=== PATIENT | female | born 1975 | race Caucasian/White ===

== ENCOUNTER 2016-12-22 06:31 | Day surgery (SDC) | payer SELFPAY ==
[~2016-12-22] VITALS: Ht 172.7 cm; Wt 110.0 kg
[~2016-12-22 06:31] MED LIST: IRON PO; NORVASC5 M2 PO; ULTRAM50 M1 PO; [UNRECOGNIZED DRUG - OTHER] PO
== END 2016-12-22 17:45 ==
LOC: SHSB 06:31 → SRG 06:31 → SHSB 06:33 → SRG 07:00 → ORE 10:58 → PACU 14:03 → SHSC 15:25 → SRG 17:45
PROC: 0MUN4KZ Supplement Right Knee Bursa and Ligament with Nonautologous Tissue Substitute, Percutaneous Endoscopic Approach (ICD-10-PCS; principal; 2016-12-22)
PROC: 0SBC4ZZ Excision of Right Knee Joint, Percutaneous Endoscopic Approach (ICD-10-PCS; principal; 2016-12-22)
DX: M23.351 Other meniscus derangements, posterior horn of lateral meniscus, right knee (principal); M23.341 Other meniscus derangements, anterior horn of lateral meniscus, right knee; M23.321 Other meniscus derangements, posterior horn of medial meniscus, right knee; M23.611 Other spontaneous disruption of anterior cruciate ligament of right knee; M17.11 Unilateral primary osteoarthritis, right knee; M22.41 Chondromalacia patellae, right knee; M23.41 Loose body in knee, right knee; I10 Essential (primary) hypertension; E66.01 Morbid (severe) obesity due to excess calories; Z68.36 Body mass index [BMI] 36.0-36.9, adult; Z88.8 Allergy status to other drugs, medicaments and biological substances; Z98.51 Tubal ligation status; Z79.899 Other long term (current) drug therapy; Z98.890 Other specified postprocedural states
CPT/HCPCS: C1713; J0171; J0690; J1170; J2250; J3010